=== PATIENT | female | born 1945 | race Caucasian/White ===

== ENCOUNTER 2021-11-21 05:38 | Inpatient (IN) | payer MEDICARE ==
[2021-11-12 14:48] LABS: BASOPHILS % (AUTO) 0.6 % (0-1); EOSINOPHILS # (AUTO) 0.1 X10'3 (0-0.9); EOSINOPHILS % (AUTO) 1.9 % (0-6); LYMPHOCYTES # (AUTO) 1.6 X10'3 (1.1-4.8); LYMPHOCYTES % (AUTO) 24.5 % (21-51); MEAN CORPUSCULAR HEMOGLOBIN 28.9 PG (27.0-31.0); MEAN CORPUSCULAR HGB CONC 33.2 g/dL (33.0-36.5); MEAN CORPUSCULAR VOLUME 87.1 FL (78-98); MEAN PLATELET VOLUME 8.1 FL (7.4-10.4); MONOCYTES # (AUTO) 0.4 X10'3 (0-0.9); MONOCYTES % (AUTO) 5.9 % (2-12); NEUTROPHILS # (AUTO) 4.4 X10'3 (1.8-7.7); NEUTROPHILS % (AUTO) 67.1 % (42-75); PRE OP HEMOGLOBIN 12.9 g/dL (12.0-16.0); PRE OP PLATELET COUNT 281 X10'3 (140-440); RED BLOOD COUNT 4.48 X10'6 (4.20-5.60); RED CELL DISTRIBUTION WIDTH 15.2 % (11.5-14.5)
[2021-11-12 15:08] LABS: ALBUMIN 3.9 G/DL (3.4-5.0); ALBUMIN/GLOBULIN RATIO 0.9 (1.1-1.5); ALKALINE PHOSPHATASE 119 IU/L (46-116); BLOOD UREA NITROGEN 19 MG/DL (7-18); BUN/CREATININE RATIO 21.3 (6.6-38.0); CALCIUM 9.2 MG/DL (8.5-10.1); CHLORIDE 104 MMOL/L (99-107); CREATININE 0.89 MG/DL (0.40-0.90); PRE OP ANION GAP 8 (8-16); PRE OP AST 27 U/L (10-37); PRE OP BILIRUB, TOTAL 0.3 MG/DL (0.0-1.0); PRE OP GLUCOSE 100 MG/DL (70-104); PRE OP POTASSIUM 4.1 MMOL/L (3.4-5.1); PRE OP SODIUM 139 MMOL/L (135-145); TOTAL CARBON DIOXIDE 26.9 MMOL/L (24-32); TOTAL PROTEIN 8.1 G/DL (6.4-8.2); eGFR 62 ML/MIN
[2021-11-12 15:27] LABS: PRE OP ALT 28 U/L (30-65)
[~2021-11-21] VITALS: Ht 152.4 cm; Wt 84.7 kg
[2021-11-21] VITALS (17 sets, daily range): BP systolic 95–153; BP diastolic 46–83
[~2021-11-21 05:38] MED LIST: ACET325T53 PO; AMLO10TA13 PO; DOCU-21 PO; LISI40TA13 PO; OMEP20TA5 PO; cefazolin/dext.iso 2gm/50ml IV ONE; famotidine 20mg tablet PO ONE; ringers solution, lacted 1,000 ML IV SCH; tranexamic acid 650mg tablet PO ONE; vancomycin 1,500 MG in NS 300ml IV soln IV ONE
[2021-11-21] MEDS ORDERED: ketorolac trometh. 30mg/ml inj. ONE (06:25)
[2021-11-21] MEDS ORDERED: ROPIVAcaine 0.5% (5mg/ml) 30ml vial ONE ×2 (06:25→08:00)
[2021-11-21] MEDS ORDERED: fentaNYL /PF 50mcg/ml 5ml ampule ONE (07:19)
[2021-11-21] MEDS ORDERED: neostigmine methylsulfate 1 MG/ML 10ml vial ONE ×2 (07:19→09:29)
[2021-11-21] MEDS ORDERED: glycopyrrolate 0.2mg/ml inj ONE ×2 (07:19→09:29)
[2021-11-21] MEDS ORDERED: ondansetron/PF 4mg/2ml inj ONE ×2 (07:20→08:26)
[2021-11-21] MEDS ORDERED: propofol inj 20 ML IV ONE ×2 (07:20→08:01)
[2021-11-21] MEDS ORDERED: dexamethasone sod phosphate 4mg/ml inj. ONE ×2 (07:20→08:26)
[2021-11-21] MEDS ORDERED: rocuronium 10mg/ml inj IV ONE ×4 (07:20→10:15)
[2021-11-21] MEDS ORDERED: LIDOcaine 2% (20mg/ml) 5ml vial ONE ×2 (07:20→08:01)
[2021-11-21] MEDS ORDERED: midazolam 1 mg/ML 2ml injection ONE (07:28)
[2021-11-21] MEDS ORDERED: fentaNYL/PF 50MCG/1 ML 2ML syringe ONE ×4 (07:28→11:46)
[2021-11-21] MEDS ORDERED: LIDOcaine 1%/PF 5ML 10 MG/ML VIAL ONE (08:01)
[2021-11-21] MEDS ORDERED: acetaminophen 1,000mg/100ml IV 100 ML IV PRN (08:05)
[2021-11-21] MEDS ORDERED: ondansetron/PF 4mg/2ml inj IV PRN ×2 (08:05→09:55)
[2021-11-21] MEDS ORDERED: hydrALAZINE 20mg/ml inj. IV PRN (08:05)
[2021-11-21] MEDS ORDERED: labetalol 20mg/4ml (5mg/ml) syringe IV PRN (08:05)
[2021-11-21] MEDS ORDERED: ringers solution, lacted 1,000 ML IV SCH (08:05)
[2021-11-21] MEDS ORDERED: ROPIVAcaine 0.2%/PF PUMP/bolus 545 ML INTERSCALE SCH (08:05)
[2021-11-21] MEDS ORDERED: meperidine/PF 25mg/ml syringe IV PRN ×2 (08:05)
[2021-11-21] MEDS ORDERED: ROPIVAcaine 0.2% (10 MG/5 ML) BOLUS INJECTION INTERSCALE PRN (08:05)
[2021-11-21] MEDS ORDERED: morphine 4 MG/ML inj SYRINge IV PRN (08:05)
[2021-11-21] MEDS ORDERED: proCHLORperazine 10 MG/2 ml inj IV PRN (08:05)
[2021-11-21] MEDS ORDERED: morphine 2 MG/ML inj. syringe IV PRN (08:05)
[2021-11-21] MEDS ORDERED: 0.9 % SODIUM CHLORIDE 10 ML VIAL ONE (08:10)
[2021-11-21] MEDS ORDERED: ePHEDrine 50MG/ML INJ. ONE (08:10)
[2021-11-21] MEDS ORDERED: morphine 4 MG/ML inj SYRINge ONE (08:49)
--- NOTE | 2021-11-21 09:45 | NUR ---
Received from OR via ORTHO BED , accompanied by Anesthesiologist ALEENA and report given by Anesthesiolgist. PATIENT WITH 20G PIV I RIGHT UE RUNNING LR AT 100. COMPLAINS OF PAIN AT THIS TIME AND WILL MEDICATE. NERVE BLOCK PORT TO RIGHT SIDE. WILL CONNECT ONCE ON Q ARRIVES. PATIENT WITH SHOULDER WRAP AND POWDER PACK IN PLACE. + RADIAL PULSE PRESENT TO LEFT UE. Addendum: 11/21/21 at 0953 by Aman Garcia RN, RN Amended: Links added.
[2021-11-21] MEDS ORDERED: acetaminophen 325mg tablet PO PRN ×2 (09:55)
[2021-11-21] MEDS ORDERED: bisacodyl 10mg suppository rectal RC PRN (09:55)
[2021-11-21] MEDS ORDERED: magnesium hydroxide 30ml (MOM) UD suspension PO PRN (09:55)
[2021-11-21] MEDS ORDERED: oxyCODONE IR 5mg (immed. release) tablet PO PRN ×2 (09:55)
[2021-11-21] MEDS ORDERED: HYDROmorphone 1 mg/ml syringe IV PRN (09:55)
[2021-11-21] MEDS: potassium cl 20mEq in 1/2 NS 1,000 ML IV SCH ×3 (09:55→23:53)
[2021-11-21] MEDS ORDERED: HYDROmorphone inj. 0.5 MG/0.5 ML DISP.SYRIN IV PRN (09:55)
[2021-11-21] MEDS ORDERED: diphenhydrAMINE 25mg capsule PO PRN ×2 (09:55)
[2021-11-21] MEDS: meperidine/PF 25mg/ml syringe IV PRN ×2 (09:55→10:40)
--- NOTE | 2021-11-21 10:33 | NUR ---
Recieved report from Aman in recovery anticipate pt arrival in 20 min.
--- NOTE | 2021-11-21 10:45 | NUR ---
PATIENT HAS MET ALL CRITERIA FOR TRANSFER TO THE SURGICAL/VENU/PCU/ORTHO/ICU FLOOR. VSS. DRESSINGS INTACT. BED LOW, CALL LIGHT PRESENT AND 2 RAILS UP. RN PRESENT TO ACCEPT CARE OF PATIENT AND REPORT HAS BEEN CALLED. ALL QUESTIONS ANSWERED TO ACCEPTING RN LOREE PUCKETTJean. DOES NOT APPEAR TO BE IN ANY DISTRESS AT THIS TIME. DRESSING STILL CDI TO LEFT SHOULDER. ON-Q STILL AT 6CC. RN AWARE. ONE BAG OF BELONGINGS PRESENT AND DENTURE (UPPER) IN PATIENT MOUTH. Addendum: 11/21/21 at 1101 by Aman Garcia RN, RN Amended: Links added.
--- NOTE | 2021-11-21 12:19 | NUR ---
TAKING OVER PATIENT CARE FROM LOREE RN. PATIENT SEDATED FROM SURGERY IN BED, VITALS APPROPRIATE AT THIS TIME BUT MONITORING CLOSE. PATIENT IS RESTING COMFORTABLY.
[2021-11-21] MEDS: acetaminophen 325mg tablet PO SCH ×2 (14:13→19:43)
[2021-11-21] MEDS ORDERED: benzocaine/menthol oral lozeng 1 EACH BOX MM PRN (15:10)
[2021-11-21] MEDS: ceFAZolin/D5W- 1GM premix 50 ML IV SCH ×2 (15:43→23:53)
--- NOTE | 2021-11-21 18:47 | NUR ---
REPORT GIVEN TO VALORIE MONZON, ALL QUESTIONS ANSWERED. PT RESTING COMFORTABLY IN BED.
[2021-11-21] MEDS: docusate sod 100mg capsule PO SCH (19:43)
[2021-11-21] MEDS ORDERED: vancomycin/NS 1 GM ADD-VANTAGE 250 ML IV SCH (20:00)
[2021-11-21] MEDS ORDERED: sennosides 8.6mg tablet PO SCH (21:00)
[2021-11-22] VITALS: BP 125/51
[2021-11-22] MEDS: acetaminophen 325mg tablet PO SCH ×3 (03:03→15:51)
--- NOTE | 2021-11-22 06:19 | NUR ---
Problems reprioritized. Patient report given, questions answered & plan of care reviewed with Harleen MONZON.
[2021-11-22 07:27] LABS: BASOPHILS % (AUTO) 0.3 % (0-1); EOSINOPHILS % (AUTO) 0.1 % (0-6); HEMOGLOBIN 9.8 g/dl (12.0-16.0); LYMPHOCYTES # (AUTO) 1.5 X10'3 (1.1-4.8); LYMPHOCYTES % (AUTO) 18.2 % (21-51); MEAN CORPUSCULAR HEMOGLOBIN 29.4 PG (27.0-31.0); MEAN CORPUSCULAR HGB CONC 33.9 g/dL (33.0-36.5); MEAN CORPUSCULAR VOLUME 86.8 FL (78-98); MEAN PLATELET VOLUME 7.7 FL (7.4-10.4); MONOCYTES # (AUTO) 0.8 X10'3 (0-0.9); MONOCYTES % (AUTO) 9.9 % (2-12); NEUTROPHILS # (AUTO) 5.7 X10'3 (1.8-7.7); NEUTROPHILS % (AUTO) 71.5 % (42-75); PLATELET COUNT 226 X10'3 (140-440); RED BLOOD COUNT 3.34 X10'6 (4.20-5.60); RED CELL DISTRIBUTION WIDTH 15.2 % (11.5-14.5)
[2021-11-22 07:38] LABS: ANION GAP 7 (8-16); CHLORIDE 106 MMOL/L (99-107); POTASSIUM 4.8 MMOL/L (3.5-5.1); SODIUM 137 MMOL/L (135-145); TOTAL CARBON DIOXIDE 24.2 MMOL/L (24-32)
[2021-11-22] MEDS ORDERED: amLODIPine 5mg tablet PO SCH (08:00)
[2021-11-22] MEDS ORDERED: pantoprazole 40mg Tablet.DR PO SCH (08:00)
[2021-11-22] MEDS ORDERED: lisinopril 20mg tablet PO SCH (08:00)
[2021-11-22] MEDS: docusate sod 100mg capsule PO SCH (08:17)
[2021-11-22] MEDS ORDERED: aspirin 325mg tablet PO SCH (08:30)
[2021-11-22 09:00] VITALS: BP 125/75
[2021-11-22] MEDS: potassium cl 20mEq in 1/2 NS 1,000 ML IV SCH (10:32)
[2021-11-22 12:00] VITALS: BP 124/54
--- NOTE | 2021-11-22 17:12 | NUR ---
PT DISCHARGED IN STABLE CONDITION. IV DC CANULA INTACT. FOLLOW UP INSTRUCTIONS GIVEN, ALL QUESTIONS ANSWERED. ALL BELONGINGS IN HAND.
[2021-11-22] MEDS ORDERED: celeCOXIB 100mg capsule PO SCH (20:00)
[2021-11-23] MEDS ORDERED: acetaminophen 325mg tablet PO PRN (09:55)
== END 2021-11-22 17:14 | disposition home or self-care (01) | DRG 483 ==
LOC: PAS 05:38 → EDSTATUS 07:45 → SUR 3N 10:07
PROVIDERS: ADMIT Orthopaedic Surgery; ATTEND Orthopaedic Surgery
PROC: 0RRK00Z Replacement of Left Shoulder Joint with Reverse Ball and Socket Synthetic Substitute, Open Approach (ICD-10-PCS; principal; 2021-11-21 07:22)
DX: S42.292A Other displaced fracture of upper end of left humerus, initial encounter for closed fracture (principal); Z20.822 Contact with and (suspected) exposure to COVID-19; W18.39XA Other fall on same level, initial encounter; Z88.8 Allergy status to other drugs, medicaments and biological substances; Z91.041 Radiographic dye allergy status; Y93.89 Activity, other specified; Y92.89 Other specified places as the place of occurrence of the external cause; Y99.8 Other external cause status
CPT/HCPCS: 36415; 80051; 80053; 82948; 85025; 87081; 97110; 97116; 97162; 97530; G0378; J0690; J1100; J1885; J2175; J2250; J2270; J2405; J2704; J2710; J2795; J3010; J3370; J3480; J3490; J7040; J7120; U0003; U0005